=== PATIENT | male | born 1995 | race African-American/Black ===

== ENCOUNTER → 2019-06-07 | Outpatient (CLI) | payer OTHER ==
[2019-06-07 17:56] LABS: Basophils # (A) 0.1 k/uL (0-0.2); Basophils % (A) 1 %; Eosinophils # (A) 0.2 k/uL (0-0.7); Eosinophils % (A) 2 %; HCT 46.1 % (39.0-53.0); HGB 14.6 gm/dL (13.0-17.5); Lymphocytes # (A) 2.6 k/uL (1.0-4.8); Lymphocytes % (A) 23 %; MCH 24.7 pg (25.0-35.0); MCHC 31.7 g/dL (31.0-37.0); Mean Platelet Volume 6.4; Monocytes # (A) 0.5 k/uL (0-1.0); Monocytes % (A) 4 %; Neutrophils # (A) 7.7 k/uL (1.3-7.7); Neutrophils % (A) 68 %; Platelet Count 188 k/uL (150-450); RBC 5.91 m/uL (4.30-5.90); RDW 13.8 % (11.5-15.5); WBC 11.3 k/uL (3.8-10.6)
[2019-06-07 18:02] LABS: Appearance,Urine Clear (Clear); Bilirubin,Urine Negative (Negative); Blood,Urine Negative (Negative); Color,Urine Yellow; Glucose,Urine (UA) Negative (Negative); Ketones,Urine 1+ (Negative); Leukocyte Esterase,Urine Small (Negative); Mucus,Urine Occasional /hpf; Nitrite,Urine Negative (Negative); Protein,Urine 1+ (Negative); RBC,Urine <1 /hpf (0-5); Specific Gravity,Urine 1.034 (1.001-1.035); Squamous Epithelial Cell,Urine <1 /hpf (0-4); WBC,Urine 4 /hpf (0-5)
[2019-06-07 20:25] LABS: Erythrocyte Sedimentation Rate 2 mm/hr (0-15)
[2019-06-08 01:04] LABS: ALT 38 U/L (10-49); AST 31 U/L (14-35); African American GFR (CKD) 108.3 (60.0-200.0); Albumin/Globulin Ratio 2.23 (1.60-3.17); Alkaline Phosphatase 31 U/L (41-126); BUN/Creat Ratio 13.64 Ratio (12.00-20.00); C Reactive Protein <0.4 mg/dL (0.0-0.8); Calcium 9.6 mg/dL (8.7-10.3); Carbon Dioxide 23.5 mmol/L (21.6-31.8); Chloride 106 mmol/L (96-109); Chol/HDL Ratio 4.98; Cholesterol 199 mg/dL (0-200); Globulin 2.2 g/dL (1.6-3.3); Glucose 83 mg/dL (70-110); LDL Cholesterol,Calculated 142.6 mg/dL (0.0-131.0); Potassium 3.9 mmol/L (3.5-5.5); Sodium 140 mmol/L (135-145); Total Bilirubin 1.4 mg/dL (0.3-1.2); Total Protein 7.1 g/dL (6.2-8.2)
[2019-06-08 18:02] LABS: Creatine Kinase 563 U/L (35-257)
== END | disposition home or self-care (01) ==
LOC: LABWHC1 16:55
PROVIDERS: ATTEND Internal Medicine
DX: Z00.00 Encounter for general adult medical examination without abnormal findings (principal); N39.0 Urinary tract infection, site not specified; E78.5 Hyperlipidemia, unspecified; I10 Essential (primary) hypertension; E55.9 Vitamin D deficiency, unspecified; R63.5 Abnormal weight gain
CPT/HCPCS: 36415; 80053; 80061; 81001; 82306; 82550; 84443; 85025; 85652; 86140

== ENCOUNTER → 2020-05-23 | Outpatient (CLI) | payer OTHER | END | disposition home or self-care (01) | LOC: LABWHC1 12:56 | PROVIDERS: ATTEND Emergency Medicine | DX: Z20.828 Contact with and (suspected) exposure to other viral communicable diseases (principal) | CPT/HCPCS: U0003; C9803 ==

== ENCOUNTER → 2020-06-27 | Outpatient (CLI) | payer OTHER ==
[2020-06-27 16:45] LABS: Basophils % (A) 0 %; Eosinophils # (A) 0.4 k/uL (0-0.7); Eosinophils % (A) 3 %; HCT 45.3 % (39.0-53.0); HGB 14.5 gm/dL (13.0-17.5); Lymphocytes % (A) 27 %; MCH 24.9 pg (25.0-35.0); MCV 77.6 fL (80.0-100.0); Mean Platelet Volume 7.3; Monocytes # (A) 0.6 k/uL (0-1.0); Monocytes % (A) 5 %; Neutrophils # (A) 6.7 k/uL (1.3-7.7); Neutrophils % (A) 62 %; Platelet Count 193 k/uL (150-450); RBC 5.83 m/uL (4.30-5.90); RDW 13.8 % (11.5-15.5); WBC 10.9 k/uL (3.8-10.6)
[2020-06-28 00:39] LABS: Erythrocyte Sedimentation Rate 3 mm/Hr (0-15)
[2020-06-28 01:20] LABS: African American GFR (CKD) 87.9 (60.0-200.0); Albumin 4.6 g/dL (3.80-4.90); Albumin/Globulin Ratio 1.84 (1.60-3.17); Anion Gap 9.8 mmol/L (4.00-12.00); BUN/Creat Ratio 9.23 Ratio (12.00-20.00); Calcium 9.2 mg/dL (8.7-10.3); Carbon Dioxide 23.2 mmol/L (21.6-31.8); Chol/HDL Ratio 4.71; Globulin 2.5 g/dL (1.6-3.3); LDL Cholesterol,Calculated 130.2 mg/dL (0.0-131.0); Non-African American GFR(CKD) 75.8 (60.0-200.0); Potassium 4.1 mmol/L (3.5-5.5); Total Bilirubin 0.6 mg/dL (0.2-1.2); Total Protein 7.1 g/dL (6.2-8.2); VLDL Calculation 21.8 mg/dL (5.00-40.00)
== END | disposition home or self-care (01) ==
LOC: LABWHC1 15:30
PROVIDERS: ATTEND Internal Medicine
DX: I10 Essential (primary) hypertension (principal); E78.5 Hyperlipidemia, unspecified; E55.9 Vitamin D deficiency, unspecified
CPT/HCPCS: 36415; 80053; 80061; 82306; 82550; 85025; 85652

== ENCOUNTER → 2021-10-03 | Outpatient (CLI) | payer OTHER ==
[2021-10-03 23:20] LABS: Basophils # (A) 0.04 X 10*3/uL (0.00-0.10); Basophils % (A) 0.3 %; Eosinophils # (A) 0.19 X 10*3/uL (0.04-0.35); Eosinophils % (A) 1.4 %; HCT 46.2 % (39.6-50.0); HGB 14.7 g/dL (13.0-17.0); Lymphocytes # (A) 2.99 X 10*3/uL (0.90-5.00); Lymphocytes % (A) 21.7 %; MCH 24.3 pg (27.0-32.0); MCHC 31.8 g/dL (32.0-37.0); MCV 76.5 fL (80.0-97.0); Mean Platelet Volume 10.6 fL (9.5-12.2); Monocytes # (A) 0.81 X 10*3/uL (0.20-1.00); Monocytes % (A) 5.9 %; Neutrophils # (A) 9.71 X 10*3/uL (1.80-7.70); Neutrophils % (A) 70.4 %; Platelet Count 233 X 10*3/uL (140-440); RBC 6.04 X 10*6/uL (4.40-5.60); RDW 14.9 % (11.5-14.5); WBC 13.78 X 10*3/uL (4.50-10.00)
[2021-10-04 00:12] LABS: ALT 36 U/L (10-49); AST 35 U/L (14-35); African American GFR (CKD) 93.6 (60.0-200.0); Albumin 4.8 g/dL (3.8-4.9); Alkaline Phosphatase 32 U/L (41-126); BUN/Creat Ratio 8.77 Ratio (12.00-20.00); Blood Urea Nitrogen 10.7 mg/dL (9.0-27.0); Calcium 9.7 mg/dL (8.7-10.3); Carbon Dioxide 20.1 mmol/L (20.0-27.5); Chloride 104 mmol/L (96-109); Globulin 2.8 g/dL (1.6-3.3); Glucose 81 mg/dL (70-110); Non-African American GFR(CKD) 80.8 (60.0-200.0); Potassium 3.9 mmol/L (3.5-5.5); Sodium 140 mmol/L (135-145); Total Protein 7.6 g/dL (6.2-8.2)
[2021-10-04 00:13] LABS: Chol/HDL Ratio 5.58 Ratio; Creatine Kinase 498 U/L (35-257); LDL Cholesterol,Calculated 154.2 mg/dL (0.0-131.0); VLDL Calculation 18.98 mg/dL (5.00-40.00)
[2021-10-04 00:25] LABS: C Reactive Protein <0.30 mg/dL (0.00-0.80)
[2021-10-04 04:43] LABS: Erythrocyte Sedimentation Rate 126 mm/Hr (0-15)
== END | disposition home or self-care (01) ==
LOC: LABWHC1 16:29
PROVIDERS: ATTEND Internal Medicine
DX: Z00.00 Encounter for general adult medical examination without abnormal findings (principal); I10 Essential (primary) hypertension; E55.9 Vitamin D deficiency, unspecified; E78.5 Hyperlipidemia, unspecified; E66.9 Obesity, unspecified
CPT/HCPCS: 36415; 80053; 80061; 82306; 82550; 85025; 85652; 86140

== ENCOUNTER → 2022-01-14 | Outpatient (CLI) | payer OTHER ==
[2022-01-14 18:04] LABS: Basophils # (A) 0.04 X 10*3/uL (0.00-0.10); Basophils % (A) 0.4 %; Eosinophils # (A) 0.26 X 10*3/uL (0.04-0.35); Eosinophils % (A) 2.8 %; HGB 14.3 g/dL (13.0-17.0); Immature Grans, Automated 0.3 %; Lymphocytes # (A) 2.49 X 10*3/uL (0.90-5.00); Lymphocytes % (A) 27.1 %; MCH 24.2 pg (27.0-32.0); MCHC 31.1 g/dL (32.0-37.0); MCV 77.7 fL (80.0-97.0); Monocytes # (A) 0.57 X 10*3/uL (0.20-1.00); Monocytes % (A) 6.2 %; NRBC Per 100 WBC 0 /100 WBCS (0.0-0.0); Neutrophils # (A) 5.81 X 10*3/uL (1.80-7.70); Neutrophils % (A) 63.2 %; Platelet Count 224 X 10*3/uL (140-440); RBC 5.92 X 10*6/uL (4.40-5.60); RDW 15.3 % (11.5-14.5)
[2022-01-14 19:04] LABS: Erythrocyte Sedimentation Rate 13 mm/Hr (0-15)
[2022-01-15 09:57] LABS: Aldolase 7.5 U/L (1.2-7.6)
== END | disposition home or self-care (01) ==
LOC: LABWHC1 11:59
PROVIDERS: ATTEND Internal Medicine
DX: Z00.00 Encounter for general adult medical examination without abnormal findings (principal); I10 Essential (primary) hypertension; E55.9 Vitamin D deficiency, unspecified; E78.5 Hyperlipidemia, unspecified; R74.8 Abnormal levels of other serum enzymes
CPT/HCPCS: 36415; 82085; 82306; 82550; 83021; 85025; 85652

== ENCOUNTER → 2024-02-24 | Outpatient (CLI) | payer OTHER ==
[2024-02-24 18:42] LABS: Basophils # (A) 0.05 X 10*3/uL (0.00-0.10); Basophils % (A) 0.5 %; Eosinophils # (A) 0.39 X 10*3/uL (0.04-0.35); Eosinophils % (A) 3.7 %; HCT 42.7 % (39.6-50.0); HGB 13.7 g/dL (13.0-17.0); Lymphocytes # (A) 3.52 X 10*3/uL (0.90-5.00); Lymphocytes % (A) 33.6 %; MCH 24.5 pg (27.0-32.0); MCHC 32.1 g/dL (32.0-37.0); MCV 76.4 FL (80.0-97.0); Mean Platelet Volume 11.2 FL (9.5-12.2); Monocytes # (A) 0.71 X 10*3/uL (0.20-1.00); Monocytes % (A) 6.8 %; NRBC Per 100 WBC 0 X 10*3/uL (0.00-0.01); Neutrophils # (A) 5.79 X 10*3/uL (1.80-7.70); Neutrophils % (A) 55.1 %; Platelet Count 218 X 10*3/uL (140-440); RBC 5.59 X 10*6/uL (4.40-5.60); RDW 14.9 % (11.5-14.5); WBC 10.49 X 10*3/uL (4.50-10.00)
[2024-02-24 19:00] LABS: Erythrocyte Sedimentation Rate 8 mm/Hr (0-15)
[2024-02-24 19:16] LABS: ALT 24 U/L (10-49); AST 25 U/L (14-35); Albumin 4.5 g/dL (3.8-4.9); Albumin/Globulin Ratio 1.96 Ratio (1.60-3.17); Alkaline Phosphatase 36 U/L (41-126); BUN/Creat Ratio 12.42 Ratio (12.00-20.00); Blood Urea Nitrogen 14.9 mg/dL (9.0-27.0); C Reactive Protein <0.30 mg/dL (0.00-0.80); Calcium 9.3 mg/dL (8.7-10.3); Carbon Dioxide 23.1 mmol/L (21.6-31.8); Chloride 104 mmol/L (96-109); Chol/HDL Ratio 3.37 Ratio; Creatine Kinase 523 U/L (35-257); Globulin 2.3 g/dL (1.6-3.3); Glucose 107 mg/dL (70-110); LDL Cholesterol,Calculated 66.5 mg/dL (0.0-131.0); Magnesium 2.1 mg/dL (1.5-2.4); Phosphorus 4.1 mg/dL (2.4-5.1); Potassium 3.5 mmol/L (3.5-5.5); Sodium 142 mmol/L (135-145); Total Bilirubin 0.8 mg/dL (0.3-1.2); Total Protein 6.8 g/dL (6.2-8.2); VLDL Calculation 15.78 mg/dL (5.00-40.00)
== END | disposition home or self-care (01) ==
LOC: LABWHC1 13:07
PROVIDERS: ATTEND Internal Medicine
DX: Z00.00 Encounter for general adult medical examination without abnormal findings (principal); I10 Essential (primary) hypertension; D64.9 Anemia, unspecified; E78.5 Hyperlipidemia, unspecified; E87.8 Other disorders of electrolyte and fluid balance, not elsewhere classified; E55.9 Vitamin D deficiency, unspecified
CPT/HCPCS: 36415; 80053; 80061; 82306; 82550; 83735; 84100; 84443; 85025; 85652; 86140

== ENCOUNTER → 2024-02-25 | Outpatient (CLI) | payer OTHER | END | disposition home or self-care (01) | LOC: LABWHC1 09:33 | PROVIDERS: ATTEND Internal Medicine | DX: Z00.00 Encounter for general adult medical examination without abnormal findings (principal); I10 Essential (primary) hypertension; E55.9 Vitamin D deficiency, unspecified; D64.9 Anemia, unspecified; E87.8 Other disorders of electrolyte and fluid balance, not elsewhere classified; E78.5 Hyperlipidemia, unspecified | CPT/HCPCS: 36415; 82272 ==